=== PATIENT | female | born 1990 | race Hispanic/Latino ===

== ENCOUNTER 2017-10-03 21:09 | Inpatient (IN) | payer MEDICAID ==
[~2017-10-03] VITALS: Ht 160 cm; Wt 84.8 kg
[2017-10-03] MEDS ORDERED: PNV71COM3 PO (21:39)
[2017-10-03 22:00] VITALS: BP 124/89
[2017-10-03 22:22] LABS: APPEARANCE,URINE Cloudy (CLEAR); BILIRUBIN,URINE Negative (NEGATIVE); COLOR,URINE Yellow (YELLOW); GLUCOSE, URINE (UA) Negative (NEGATIVE); KETONES,URINE Negative (NEGATIVE); LEUKOCYTE ESTERASE ,URINE Trace (NEGATIVE); NITRATE,URINE Negative (NEGATIVE); OCCULT BLOOD,URINE Negative (NEGATIVE); PH,URINE 7.5 (5.0-8.0); PROTEIN,URINE Negative (NEGATIVE); UROBILINOGEN,URINE 0.2 mg/dL (0.2-1.0)
[2017-10-03] MEDS ORDERED: DINOPROSTONE 10 MG VAGINAL SUPP VG SCH (22:30)
[2017-10-03 22:31] LABS: AMORPHOUS SEDIMENT,UR Many /LPF (None Seen); BACTERIA,URINE None Seen /HPF (None Seen); MUCUS,URINE Moderate LPF (None Seen); RBC,URINE None Seen /HPF (0-1); SQUAMOUS EPITHELIAL CELL,UR Many /HPF (0-2)
[2017-10-03 22:44] LABS: BASOPHILS % (AUTO) 0.2 % (0.0-5.0); EOSINOPHILS % (AUTO) 0.4 % (0.0-8.0); HEMATOCRIT 35.4 % (36-48); LYMPHOCYTES % (AUTO) 18.4 % (21.0-51.0); MEAN CORPUSCULAR HEMOGLOBIN 32.8 pg (27.0-33.0); MEAN CORPUSCULAR HGB CONC 34.6 g/dL (32.0-36.0); MEAN CORPUSCULAR VOLUME 94.9 fL (79-99); MONOCYTES % (AUTO) 7.7 % (3.0-13.0); NEUTROPHILS % (AUTO) 73.3 % (40.0-77.0); PLATELET COUNT (AUTO) 274 K/uL (130-400); RED BLOOD CELL COUNT(AUTO) 3.74 MIL/uL (4.00-5.50); WHITE BLOOD COUNT (AUTO) 9.1 K/uL (4.8-10.8)
[2017-10-03 22:54] LABS: CREATININE 0.7 mg/dL (0.5-1.5); POTASSIUM 3.8 mmol/L (3.5-5.1)
[2017-10-03 22:56] LABS: INR 0.86 (0.85-1.15); PARTIAL THROMBOPLASTIN TIME 25.9 SEC (26.3-35.5); PROTHROMBIN TIME 9.1 SEC (9.6-11.6)
[2017-10-03 22:58] LABS: ALBUMIN 2.8 g/dL (3.5-5.0); BILIRUBIN,TOTAL 0.3 mg/dL (0.2-1.0); TOTAL PROTEIN, SERUM 7.5 g/dL (6.0-8.3); URIC ACID 4.5 mg/dL (2.6-7.2)
[2017-10-03] MEDS: LACTATED RINGERS 1000ML 1,000 ML IV PRN (23:21)
[2017-10-04] MEDS ORDERED: MORPHINE SULFATE 4 MG/1ML SYG IM ONE (00:30)
[2017-10-04] MEDS: LACTATED RINGERS 1000ML 1,000 ML IV PRN ×2 (03:38→20:28)
[2017-10-04] MEDS ORDERED: OXYTOCIN 10 USP UNITS/ML ONE (12:23)
[2017-10-04] MEDS: OXYTOCIN 10 USP UNITS/ML 20 UNIT in LACTATED RINGERS 1000ML 1,000 ML IV SCH (12:48)
[2017-10-04] MEDS ORDERED: MORPHINE SULFATE 10 MG/ML 1ML SYG IM PRN (22:00)
[2017-10-05] MEDS ORDERED: LACTATED RINGERS 1000ML 1,000 ML IV ONE (04:51)
[2017-10-05] MEDS ORDERED: OXYTOCIN 10 USP UNITS/ML ONE (04:51)
[2017-10-05] MEDS: OXYTOCIN 10 USP UNITS/ML 20 UNIT in LACTATED RINGERS 1000ML 1,000 ML IV SCH (05:19)
[2017-10-05] MEDS: LACTATED RINGERS 1000ML 1,000 ML IV PRN (05:22)
[2017-10-05 06:09] LABS: HEPATITIS Bs ANTIGEN SCREEN P Negative (Negative)
== END 2017-10-05 17:15 | disposition home or self-care (01) | DRG 566 ==
LOC: LDH 21:09
DX: O13.3 Gestational [pregnancy-induced] hypertension without significant proteinuria, third trimester (principal); O12.03 Gestational edema, third trimester; Z88.1 Allergy status to other antibiotic agents; Z3A.39 39 weeks gestation of pregnancy; Z83.3 Family history of diabetes mellitus
CPT/HCPCS: 36415; 80053; 81001; 84550; 85025; 85384; 85610; 85730; 86592; 86850; 86900; 86901; 87340; J2270; J2590; J7120

== ENCOUNTER 2017-10-09 06:34 | Inpatient (IN) | payer MEDICAID ==
[~2017-10-09] VITALS: Ht 157.5 cm; Wt 83.5 kg
[~2017-10-09 06:34] MED LIST: PNV71COM3 PO
[2017-10-09 07:14] LABS: APPEARANCE,URINE CLEAR (CLEAR); BILIRUBIN,URINE NEGATIVE (NEGATIVE); COLOR,URINE YELLOW (YELLOW); GLUCOSE, URINE (UA) NEGATIVE (NEGATIVE); KETONES,URINE NEGATIVE (NEGATIVE); LEUKOCYTE ESTERASE ,URINE SMALL (NEGATIVE); NITRATE,URINE NEGATIVE (NEGATIVE); OCCULT BLOOD,URINE LARGE (NEGATIVE); PH,URINE 6.5 (5.0-8.0); PROTEIN,URINE TRACE (NEGATIVE); UROBILINOGEN,URINE 0.2 mg/dL (0.2-1.0)
[2017-10-09 07:22] LABS: BACTERIA,URINE Rare /HPF (None Seen); RBC,URINE 0-1 /HPF (0-1); SQUAMOUS EPITHELIAL CELL,UR Rare /HPF (0-2)
[2017-10-09] MEDS: OXYTOCIN-LR 20 UNITS/1000 ML 1,000 ML IV SCH ×3 (07:30→22:19)
[2017-10-09 07:44] LABS: HEMATOCRIT 37.3 % (36-48); MEAN CORPUSCULAR HEMOGLOBIN 32.7 pg (27.0-33.0); MEAN CORPUSCULAR HGB CONC 34.4 g/dL (32.0-36.0); MEAN CORPUSCULAR VOLUME 95.1 fL (79-99); PLATELET COUNT (AUTO) 251 K/uL (130-400); RED BLOOD CELL COUNT(AUTO) 3.92 MIL/uL (4.00-5.50); RED CELL DISTRIBUTION WIDTH 14.2 % (11.0-15.5); WHITE BLOOD COUNT (AUTO) 10.6 K/uL (4.8-10.8)
[2017-10-09 07:51] LABS: CREATININE 0.7 mg/dL (0.5-1.5); POTASSIUM 3.9 mmol/L (3.5-5.1)
[2017-10-09 07:53] LABS: INR 0.85 (0.85-1.15)
[2017-10-09 07:57] LABS: ALBUMIN 2.7 g/dL (3.5-5.0); BILIRUBIN,TOTAL 0.3 mg/dL (0.2-1.0); TOTAL PROTEIN, SERUM 7.5 g/dL (6.0-8.3); URIC ACID 4.5 mg/dL (2.6-7.2)
[2017-10-09] MEDS ORDERED: LACTATED RINGERS 500 ML 500 ML IV PRN (13:00)
[2017-10-09] MEDS ORDERED: NALOXONE HCL 0.4 MG/1 ML ML IV PRN (13:00)
[2017-10-09] MEDS ORDERED: EPHEDRINE SULFATE 50 MG/ML AMPULE IVP PRN (13:00)
[2017-10-09] MEDS ORDERED: OXYTOCIN 10 USP UNITS/ML ONE ×2 (13:06→22:11)
[2017-10-09] MEDS ORDERED: OXYTOCIN 10 USP UNITS/ML 20 UNIT in LACTATED RINGERS 1000ML 1,000 ML IV SCH (14:00)
[2017-10-09] MEDS ORDERED: LIDOCAINE HCL 1% 20 ML VIAL ONE (20:53)
[2017-10-09] MEDS ORDERED: ACETAMINOPHEN-CODEINE 300/30MG TAB PO PRN (21:30)
[2017-10-09] MEDS ORDERED: LANOLIN 30GM OINTMENT TP PRN (21:30)
[2017-10-09] MEDS ORDERED: DIPH,PERTUSS(ACELL),TET VAC/PF 0.5 ML VIAL IM PRN (21:30)
[2017-10-09] MEDS ORDERED: CEFAZOLIN 2GM / 50 ML 50 ML IV SCH (21:30)
[2017-10-09] MEDS: IBUPROFEN 800 MG TAB PO PRN (21:41)
[2017-10-09] MEDS: CEFAZOLIN SODIUM 1 GM VIAL IVP SCH (21:59)
[2017-10-09] MEDS ORDERED: LACTATED RINGERS 1000ML 1,000 ML IV ONE (22:11)
[2017-10-09] MEDS: WITCH HAZEL 1 PAD TP PRN (22:36)
[2017-10-09] MEDS: BENZOCAINE/LANOLIN/ALOE VERA 60 ML AEROSOL TP PRN (22:36)
[2017-10-10] VITALS (8 sets, daily range): BP systolic 109–124; BP diastolic 62–80
[2017-10-10] MEDS: LACTATED RINGERS 1000ML 1,000 ML IV PRN ×3 (00:40→17:52)
[2017-10-10] MEDS: CEFAZOLIN SODIUM 1 GM VIAL IVP SCH ×3 (05:52→22:13)
[2017-10-10] MEDS: WITCH HAZEL 1 PAD TP PRN (06:40)
[2017-10-10] MEDS: BENZOCAINE/LANOLIN/ALOE VERA 60 ML AEROSOL TP PRN (06:40)
[2017-10-10 06:45] LABS: BASOPHILS % (AUTO) 0.1 % (0.0-5.0); HEMATOCRIT 29.5 % (36-48); LYMPHOCYTES % (AUTO) 5.3 % (21.0-51.0); MEAN CORPUSCULAR HEMOGLOBIN 31.6 pg (27.0-33.0); MEAN CORPUSCULAR HGB CONC 33.3 g/dL (32.0-36.0); MEAN CORPUSCULAR VOLUME 94.8 fL (79-99); MONOCYTES % (AUTO) 7.6 % (3.0-13.0); PLATELET COUNT (AUTO) 211 K/uL (130-400); RED BLOOD CELL COUNT(AUTO) 3.11 MIL/uL (4.00-5.50); WHITE BLOOD COUNT (AUTO) 17.8 K/uL (4.8-10.8)
[2017-10-10] MEDS: OXYTOCIN-LR 20 UNITS/1000 ML 1,000 ML IV SCH (07:30)
[2017-10-10] MEDS: DOCUSATE SODIUM 100 MG CAP PO SCH ×2 (09:14→20:55)
[2017-10-10] MEDS: IBUPROFEN 800 MG TAB PO PRN ×2 (09:14→17:52)
[2017-10-10 10:27] LABS: HEPATITIS Bs ANTIGEN SCREEN P Negative (Negative)
[2017-10-11] MEDS: LACTATED RINGERS 1000ML 1,000 ML IV PRN (02:43)
[2017-10-11] MEDS: IBUPROFEN 800 MG TAB PO PRN ×3 (02:50→18:31)
[2017-10-11 03:16] VITALS: BP 121/79
[2017-10-11] MEDS: CEFAZOLIN SODIUM 1 GM VIAL IVP SCH (06:09)
[2017-10-11 07:36] VITALS: BP 120/77
[2017-10-11] MEDS: DOCUSATE SODIUM 100 MG CAP PO SCH ×2 (09:06→21:00)
[2017-10-11 11:28] VITALS: BP 118/72
[2017-10-11] MEDS: HYDROCHLOROTHIAZIDE 25 MG TABLET PO SCH ×2 (11:38→20:30)
[2017-10-11 16:00] VITALS: BP 131/79
[2017-10-11 19:20] VITALS: BP 143/74
[2017-10-11 23:35] VITALS: BP 132/77
[2017-10-12 03:37] VITALS: BP 135/83
[2017-10-12] MEDS: IBUPROFEN 800 MG TAB PO PRN (03:37)
[2017-10-12 07:47] VITALS: BP 144/90
[2017-10-12] MEDS: DOCUSATE SODIUM 100 MG CAP PO SCH (08:25)
[2017-10-12] MEDS ORDERED: HYDROCHLOROTHIAZIDE 25 MG TABLET PO SCH (09:00)
[2017-10-12 11:21] VITALS: BP 140/80
[2017-10-12 11:26] LABS: RAPID PLASMA REAGIN NONREACTIVE (NONREACTIVE)
== END 2017-10-12 14:45 | disposition home or self-care (01) | DRG 560 ==
LOC: OBSVTOIN 06:34 → LDH 06:34 → WSH 23:50
PROC: 10E0XZZ Delivery of Products of Conception, External Approach (ICD-10-PCS; principal; 2017-10-09)
PROC: 0KQM0ZZ Repair Perineum Muscle, Open Approach (ICD-10-PCS; 2017-10-09)
PROC: 3E0P7VZ Introduction of Hormone into Female Reproductive, Via Natural or Artificial Opening (ICD-10-PCS; 2017-10-09)
PROC: 3E0R3BZ Introduction of Anesthetic Agent into Spinal Canal, Percutaneous Approach (ICD-10-PCS; 2017-10-09)
PROC: 00HU33Z Insertion of Infusion Device into Spinal Canal, Percutaneous Approach (ICD-10-PCS; 2017-10-09)
PROC: 10907ZC Drainage of Amniotic Fluid, Therapeutic from Products of Conception, Via Natural or Artificial Opening (ICD-10-PCS; 2017-10-09)
PROC: 3E0234Z Introduction of Serum, Toxoid and Vaccine into Muscle, Percutaneous Approach (ICD-10-PCS; 2017-10-10)
PROC: 30233S1 Transfusion of Nonautologous Globulin into Peripheral Vein, Percutaneous Approach (ICD-10-PCS; 2017-10-10)
DX: O14.04 Mild to moderate pre-eclampsia, complicating childbirth (principal); O41.1230 Chorioamnionitis, third trimester, not applicable or unspecified; O70.1 Second degree perineal laceration during delivery; Z37.0 Single live birth; Z3A.39 39 weeks gestation of pregnancy; Z23 Encounter for immunization
CPT/HCPCS: 36415; 80053; 81001; 83033; 84550; 85025; 85027; 85384; 85610; 85730; 86592; 86701; 86850; 86900; 86901; 87070; 87076; 87077; 87186; 87340; 87390; 88307; 90715; A4218; A4351; J0690; J2590; J2791; J7120

== ENCOUNTER 2018-09-08 06:05 | Inpatient (IN) | payer OTHER, MEDICAID ==
[~2018-09-08] VITALS: Ht 160 cm; Wt 86.6 kg
[2018-09-09] MEDS ORDERED: LACTATED RINGERS 1000ML 1,000 ML IV PRN (08:03)
[2018-09-09] MEDS ORDERED: EPHEDRINE SULFATE 50 MG/ML AMPULE IVP PRN (08:15)
[2018-09-09] MEDS ORDERED: OXYTOCIN 10 USP UNITS/ML 20 UNIT in LACTATED RINGERS 1000ML 1,000 ML IV SCH (08:15)
[2018-09-09] MEDS ORDERED: LACTATED RINGERS 500 ML 500 ML IV PRN (08:15)
[2018-09-09] MEDS ORDERED: NALOXONE HCL 0.4 MG/1 ML ML IV PRN (08:15)
[2018-09-09] MEDS ORDERED: OXYTOCIN-LR 20 UNITS/1000 ML 1,000 ML IV ONE ×2 (08:42→15:21)
[2018-09-09 09:14] LABS: HEMATOCRIT 34.8 % (36-48); MEAN CORPUSCULAR HEMOGLOBIN 33.2 pg (27.0-33.0); MEAN CORPUSCULAR HGB CONC 34.5 g/dL (32.0-36.0); MEAN CORPUSCULAR VOLUME 96.3 fL (79-99); PLATELET COUNT (AUTO) 240 K/uL (130-400); RED BLOOD CELL COUNT(AUTO) 3.61 MIL/uL (4.00-5.50); RED CELL DISTRIBUTION WIDTH 14.6 % (11.0-15.5)
[2018-09-09 09:20] LABS: APPEARANCE,URINE Clear (CLEAR); BILIRUBIN,URINE Negative (NEGATIVE); COLOR,URINE Yellow (YELLOW); GLUCOSE, URINE (UA) Negative (NEGATIVE); KETONES,URINE Negative (NEGATIVE); LEUKOCYTE ESTERASE ,URINE Trace (NEGATIVE); NITRATE,URINE Negative (NEGATIVE); OCCULT BLOOD,URINE Negative (NEGATIVE); PROTEIN,URINE Negative (NEGATIVE); UROBILINOGEN,URINE 0.2 mg/dL (0.2-1.0)
[2018-09-09 09:42] LABS: BACTERIA,URINE Moderate /HPF (None Seen); RBC,URINE 0-1 /HPF (0-1)
[2018-09-09] MEDS ORDERED: LIDOCAINE 2%-EPI 1:200,000 20 ML VIAL IJ ONE (14:27)
[2018-09-09] MEDS ORDERED: AMPICILLIN 1GM VIAL IV SCH (15:45)
[2018-09-09] MEDS ORDERED: WITCH HAZEL 1 PAD TP PRN (16:00)
[2018-09-09] MEDS ORDERED: BENZOCAINE/LANOLIN/ALOE VERA 60 ML AEROSOL TP PRN (16:00)
[2018-09-09] MEDS ORDERED: LANOLIN 30GM OINTMENT TP PRN (16:00)
[2018-09-09] MEDS ORDERED: DIPH,PERTUSS(ACELL),TET VAC/PF 0.5 ML VIAL IM PRN (16:00)
[2018-09-09] MEDS ORDERED: ACETAMINOPHEN 325 MG TAB PO PRN (16:00)
[2018-09-09] MEDS ORDERED: LIDOCAINE HCL 5% OINT 36GM TUBE TP PRN (16:00)
[2018-09-09 18:20] VITALS: BP 115/74
--- NOTE | 2018-09-09 18:29 | NUR ---
ARRIVED PATIENT ARRIVED TO UNIT VIA WHEELCHAIR FROM LABOR AND DELIVERY. PATIENT [id number]. PATIENT AND FAMILY ORIENTED TO ROOM. FUNDUS FIRM, BLEEDING SCANT. MOHAMUD CATHETER DRAINING CLEAR YELLOW URINE. CALL LIGHT LEFT IN REACH. ADVISED TO CALL WITH ANY NEEDS OR CONCERNS.
[2018-09-09] MEDS: IBUPROFEN 800 MG TAB PO PRN (19:08)
--- NOTE | 2018-09-09 20:00 | NUR ---
PT. RESTING IN BED. RT.GABBI DRAIN TO RT VULVA INTACT, SLIGHT EDEMA NOTED ,AREA SOFT TO TOUCH WITH NO REDNESS NOTED. SLIGHT BLEEDING NOTED.
[2018-09-09 20:12] VITALS: BP 123/73
[2018-09-09] MEDS: AMPICILLIN 2GM+NS 100ML 100 ML IV SCH ×2 (21:09→21:19)
[2018-09-09] MEDS: DOCUSATE SODIUM 100 MG CAP PO SCH (21:09)
[2018-09-09] MEDS: ACETAMINOPHEN-CODEINE 300/30MG TAB PO PRN (23:33)
[2018-09-10 00:26] VITALS: BP 126/78
[2018-09-10] MEDS: AMPICILLIN 2GM+NS 100ML 100 ML IV SCH ×2 (04:00→10:09)
[2018-09-10 06:02] VITALS: BP 115/77
[2018-09-10 07:07] LABS: HEMATOCRIT 26.5 % (36-48); MEAN CORPUSCULAR HEMOGLOBIN 33.3 pg (27.0-33.0); MEAN CORPUSCULAR HGB CONC 34.1 g/dL (32.0-36.0); MEAN CORPUSCULAR VOLUME 97.6 fL (79-99); PLATELET COUNT (AUTO) 188 K/uL (130-400); RED BLOOD CELL COUNT(AUTO) 2.71 MIL/uL (4.00-5.50); RED CELL DISTRIBUTION WIDTH 14.9 % (11.0-15.5); WHITE BLOOD COUNT (AUTO) 7.8 K/uL (4.8-10.8)
[2018-09-10 07:43] VITALS: BP 107/68
--- NOTE | 2018-09-10 08:15 | NUR ---
COMFORT LIDOCAINE OINTMENT APPLIED TO [facility] FOR DISCOMFORT. MILD SWELLING NOTED,SOFT TO THE TOUCH. GABBI DRAIN INTACT. MOHAMUD CATHETER DRAINING CLEAR YELLOW URINE.
--- NOTE | 2018-09-10 08:25 | NUR ---
SPOKE WITH DR. STERN ON PATIENT'S STATUS. NEW ORDERS RECEIVED TO DISCONTINUE MOHAMUD CATHETER.
[2018-09-10] MEDS: DOCUSATE SODIUM 100 MG CAP PO SCH (08:41)
[2018-09-10] MEDS: ACETAMINOPHEN-CODEINE 300/30MG TAB PO PRN (08:42)
--- NOTE | 2018-09-10 10:00 | NUR ---
MOHAMUD MOHAMUD CATHETER REMOVED WITH TIP INTACT. 400ML OF CLEAR YELLOW URINE EMPTIED FROM BAG. ADVISED PATIENT TO CALL WHEN AMBULATING FOR THE FIRST TIME. BABY IS LATCHED TO LEFT BREAST WITH PROPER LATCH. CALL LIGHT LEFT IN REACH. AT BEDSIDE.
[2018-09-10 11:48] VITALS: BP 107/70
[2018-09-10] MEDS: IBUPROFEN 800 MG TAB PO PRN (12:54)
--- NOTE | 2018-09-10 14:00 | NUR ---
MD DR. STERN REMOVED GABBI DRAIN AT BEDSIDE. DRAIN IS INTACT. PATIENT TOLERATED WELL. PATIENT OKAY FOR DISCHARGE. DISCHARGE INSTRUCTIONS DISCUSSED WITH PATIENT. QUESTIONS INVITED AND ANSWERED.
--- NOTE | 2018-09-10 14:15 | NUR ---
SAFETY ASSISTED PATIENT OOB TO RESTROOM. NO COMPLAINTS OF DIZZINESS REPORTED. 700ML OF CLEAR YELLOW URINE VOIDED.
--- NOTE | 2018-09-10 16:20 | NUR ---
INSTRUCTIONS DISCHARGE INSTRUCTIONS READ AND EXPLAINED TO PATIENT. REEDUCATED PATIENT ON SITZ BATH. QUESTIONS INVITED AND ANSWERED. NO COMPLAINTS OR CONCERNS ADDRESSED FROM PATIENT ON DISCHARGE.
[2018-09-10 16:23] VITALS: BP 124/81
--- NOTE | 2018-09-10 17:00 | NUR ---
DISCHARGE PATIENT LEFT UNIT VIA WHEELCHAIR WITH BABY IN ARMS ACCOMPANIED BY FAMILY MEMBER. PERSONAL VEHICLE USED FOR TRANSPORTATION. BABY SECURE IN CARSEAT. NO COMPLAINTS OR CONCERNS ADDRESSED FROM PATIENT ON DISCHARGE.
[2018-09-11 07:30] LABS: HEPATITIS Bs ANTIGEN SCREEN P Negative (Negative)
== END 2018-09-10 17:00 | disposition home or self-care (01) | DRG 806 ==
LOC: EDSTATUS 06:05 → WSH 09-09 06:11 → LDH 09-09 06:12 → WSH 09-09 18:14
PROC: 0KQM0ZZ Repair Perineum Muscle, Open Approach (ICD-10-PCS; principal; 2018-09-09)
PROC: 10E0XZZ Delivery of Products of Conception, External Approach (ICD-10-PCS; 2018-09-09)
PROC: 10907ZC Drainage of Amniotic Fluid, Therapeutic from Products of Conception, Via Natural or Artificial Opening (ICD-10-PCS; 2018-09-09)
PROC: 3E0R3BZ Introduction of Anesthetic Agent into Spinal Canal, Percutaneous Approach (ICD-10-PCS; 2018-09-09)
PROC: 00HU33Z Insertion of Infusion Device into Spinal Canal, Percutaneous Approach (ICD-10-PCS; 2018-09-09)
PROC: 3E0234Z Introduction of Serum, Toxoid and Vaccine into Muscle, Percutaneous Approach (ICD-10-PCS; 2018-09-09)
PROC: 3E0334Z Introduction of Serum, Toxoid and Vaccine into Peripheral Vein, Percutaneous Approach (ICD-10-PCS; 2018-09-09)
DX: O26.893 Other specified pregnancy related conditions, third trimester (principal); D62 Acute posthemorrhagic anemia; Z37.0 Single live birth; O70.1 Second degree perineal laceration during delivery; Z3A.40 40 weeks gestation of pregnancy; Z23 Encounter for immunization; Z67.11 Type A blood, Rh negative; O90.81 Anemia of the puerperium
CPT/HCPCS: 36415; 81001; 83033; 85027; 86592; 86850; 86900; 86901; 87340; A4314; G0378; J0290; J2590; J3490; J7120

== ENCOUNTER 2020-05-30 12:43 | Inpatient (IN) | payer OTHER ==
[~2020-05-30] VITALS: Ht 160 cm; Wt 86.2 kg
[2020-05-30] MEDS ORDERED: PROMETHAZINE HCL 25 MG/ML 1ML AMPULE IM PRN ×2 (12:45→18:15)
[2020-05-30] MEDS ORDERED: MEPERIDINE-PF 50 MG/ML SYG IVP PRN (12:45)
[2020-05-30] MEDS ORDERED: OXYTOCIN-LR 20 UNITS/1000 ML 1,000 ML IV SCH ×2 (12:45)
[2020-05-30] MEDS ORDERED: LACTATED RINGERS 1000ML 1,000 ML IV PRN (12:45)
[2020-05-30 13:12] VITALS: BP 112/70
[2020-05-30 13:22] LABS: HEMATOCRIT 37.6 % (36-48); MEAN CORPUSCULAR HEMOGLOBIN 33.2 pg (27.0-33.0); MEAN CORPUSCULAR HGB CONC 33.8 g/dL (32.0-36.0); MEAN CORPUSCULAR VOLUME 98.2 fL (79-99); RED BLOOD CELL COUNT(AUTO) 3.83 MIL/uL (4.00-5.50); RED CELL DISTRIBUTION WIDTH 13.3 % (11.0-15.5); WHITE BLOOD COUNT (AUTO) 6.8 K/uL (4.8-10.8)
[2020-05-30 13:43] LABS: APPEARANCE,URINE Clear (CLEAR); BILIRUBIN,URINE Negative (NEGATIVE); COLOR,URINE Yellow (YELLOW); GLUCOSE, URINE (UA) Negative (NEGATIVE); KETONES,URINE Negative (NEGATIVE); LEUKOCYTE ESTERASE ,URINE Moderate (NEGATIVE); NITRATE,URINE Negative (NEGATIVE); OCCULT BLOOD,URINE Negative (NEGATIVE); PH,URINE 7.5 (5.0-8.0); PROTEIN,URINE Negative (NEGATIVE); UROBILINOGEN,URINE 0.2 mg/dL (0.2-1.0)
[2020-05-30 13:52] LABS: BACTERIA,URINE Rare /HPF (None Seen); MUCUS,URINE Rare LPF (None Seen); RBC,URINE 0-1 /HPF (0-1); SQUAMOUS EPITHELIAL CELL,UR Moderate /HPF (0-2)
[2020-05-30] MEDS ORDERED: CEFAZOLIN SODIUM 1 GM VIAL IVP PRN (16:45)
[2020-05-30] MEDS ORDERED: CEFAZOLIN SODIUM 1 GM VIAL ONE (16:47)
[2020-05-30] MEDS ORDERED: FENTANYL CITRATE PF 50 MCG/1 ML 2ML VIAL ONE (17:13)
[2020-05-30] MEDS ORDERED: MORPHINE PF 100MG/10ML AMP IV ONE (17:13)
[2020-05-30] MEDS ORDERED: CEFAZOLIN SODIUM 1 GM VIAL IVP ONE (17:20)
[2020-05-30] MEDS ORDERED: OXYTOCIN 10 USP UNITS/ML ONE ×2 (17:32→17:38)
[2020-05-30] MEDS ORDERED: PHENYLEPHRINE HCL 10 MG/ML 1ML VIAL IV ONE (17:40)
[2020-05-30] MEDS ORDERED: ONDANSETRON 4MG INJ ONE (18:04)
[2020-05-30] MEDS ORDERED: MEPERIDINE-PF 75 MG/ML SYG IM PRN (18:15)
[2020-05-30] MEDS ORDERED: 0.9%NACL 10ML VIAL IVP PRN (18:15)
[2020-05-30] MEDS ORDERED: OXYTOCIN-LR 20 UNITS/1000 ML 1,000 ML IV PRN (18:15)
[2020-05-30] MEDS ORDERED: DEXTROSE 5 %-0.45 % NACL 1,000 ML IV PRN (18:15)
[2020-05-30 20:00] VITALS: BP 104/67
[2020-05-30] MEDS ORDERED: MORPHINE 2 MG SYG ONE (21:42)
[2020-05-30 23:10] VITALS: BP 114/79
[2020-05-31 03:17] VITALS: BP 111/77
[2020-05-31 07:16] LABS: HEPATITIS Bs ANTIGEN SCREEN P Negative (Negative)
[2020-05-31 07:37] VITALS: BP 108/68
[2020-05-31] MEDS ORDERED: LANOLIN 30GM OINTMENT TP PRN (08:15)
[2020-05-31] MEDS ORDERED: HYDROCODONE/ACETAMINOPHEN 5/325 MG TAB PO PRN (08:15)
[2020-05-31] MEDS ORDERED: BISACODYL 10 MG SUPP.RECT RC PRN (08:15)
[2020-05-31] MEDS ORDERED: ACETAMINOPHEN WITH CODEINE 1 TAB TAB PO PRN (08:15)
[2020-05-31] MEDS ORDERED: ACETAMINOPHEN 500 MG TABLET PO PRN (08:15)
[2020-05-31 08:34] LABS: HEMATOCRIT 28.1 % (36-48); MEAN CORPUSCULAR HEMOGLOBIN 32.4 pg (27.0-33.0); MEAN CORPUSCULAR HGB CONC 32.7 g/dL (32.0-36.0); MEAN CORPUSCULAR VOLUME 98.9 fL (79-99); RED BLOOD CELL COUNT(AUTO) 2.84 MIL/uL (4.00-5.50); RED CELL DISTRIBUTION WIDTH 13.4 % (11.0-15.5); WHITE BLOOD COUNT (AUTO) 10.7 K/uL (4.8-10.8)
[2020-05-31] MEDS: DOCUSATE SODIUM 100 MG CAP PO SCH ×2 (09:19→21:03)
[2020-05-31] MEDS: SIMETHICONE 80 MG TAB.CHEW PO PRN ×2 (09:19→21:03)
[2020-05-31] MEDS: IBUPROFEN 600 MG TABLET PO PRN ×2 (09:20→15:30)
[2020-05-31 11:10] VITALS: BP 102/58
[2020-05-31 16:20] VITALS: BP 98/63
[2020-05-31 19:40] VITALS: BP 108/70
[2020-05-31 23:02] VITALS: BP 101/59
[2020-06-01 03:18] VITALS: BP 110/70
[2020-06-01 07:35] VITALS: BP 123/66
[2020-06-01] MEDS: DOCUSATE SODIUM 100 MG CAP PO SCH (08:31)
[2020-06-01] MEDS: SIMETHICONE 80 MG TAB.CHEW PO PRN ×2 (08:31→16:59)
[2020-06-01] MEDS: IBUPROFEN 600 MG TABLET PO PRN ×2 (08:32→16:59)
[2020-06-01 11:41] VITALS: BP 121/72
[2020-06-01 16:36] VITALS: BP 129/79
== END 2020-06-01 17:15 | disposition home or self-care (01) | DRG 788 ==
LOC: LDH 12:43 → WSH 23:03 → PREOBSVTOIN 06-04 12:42
PROVIDERS: ADMIT Specialist; ATTEND Specialist
PROC: 10D00Z1 Extraction of Products of Conception, Low, Open Approach (ICD-10-PCS; principal; 2020-05-30 17:00)
DX: O66.5 Attempted application of vacuum extractor and forceps (principal); Z3A.39 39 weeks gestation of pregnancy; O99.214 Obesity complicating childbirth; E66.01 Morbid (severe) obesity due to excess calories; O62.1 Secondary uterine inertia; Z37.0 Single live birth
CPT/HCPCS: 36415; 59510; 81001; 85027; 86592; 86850; 86900; 86901; 87088; 87340; A4344; G0378; J0690; J2175; J2274; J2370; J2405; J2550; J2590; J3010; J7120